=== PATIENT | female | born 1960 | race Caucasian/White ===

== ENCOUNTER → 2017-07-30 | Outpatient (CLI) | payer OTHER ==
--- NOTE | 2017-07-31 08:34 | RAD ---
EXAM: Cervical spine 4 views. HISTORY: Numbness and tingling right upper extremity. COMPARISON: None. FINDINGS: There is slight retrolisthesis from C4 through C6. Degenerative disc disease is moderate at C5-6 and mild at C6-7. No fractures are identified. There is no prevertebral soft tissue swelling. Facet osteoarthritis appears moderate from C4 through C6 on the right greater than left. IMPRESSION: 1. Slight retrolisthesis from C4 through C6 likely from facet osteoarthritis. 2. Degenerative disc disease is moderate at C5-6 and mild at C6-7.
== END | disposition home or self-care (01) ==
LOC: RAD 16:36
PROVIDERS: ATTEND Nurse Practitioner Family
DX: M47.892 Other spondylosis, cervical region (principal); M50.323 Other cervical disc degeneration at C6-C7 level
CPT/HCPCS: 72040

== ENCOUNTER 2017-12-17 15:35 | Emergency (ER) | payer OTHER ==
[~2017-12-17] VITALS: Ht 167.6 cm; Wt 53.9 kg
--- NOTE | 2017-12-17 15:44 | EKG ---
[address] [address] Test Date: 2017-12-17 Test Time: 15:39:47 Pat Name: MATIAS BUSCH Department: Room: Gender: F Bilingual Manager: MIK : 1960 Requested By: REGLA DEL TORO Order Number: [id number] Reading MD: Hernando Riggs MD Measurements Intervals [place] Rate: 76 P: 0 NE: 114 QRS: 27 QRSD: 80 T: 12 QT: 396 QTc: 445 Interpretive Statements SINUS RHYTHM Electronically Signed On 12-19-2017 10:46:57 CDT by Hernando Riggs MD
[2017-12-17 15:59] LABS: BASO # 0.1 x10^3/uL (0.0-0.2); BASO % 1 % (0-3); EOS # 0.2 x10^3/uL (0.0-0.7); EOS % 2 % (0-3); HEMATOCRIT 40.3 % (36.0-47.0); HEMOGLOBIN 13.6 g/dL (12.0-15.5); LYMPH # 2.9 x10^3/uL (1.0-4.8); LYMPH % 34 % (24-48); MEAN CORPUSCULAR HEMOGLOBIN 31 pg (25-35); MEAN CORPUSCULAR HGB CONC 34 g/dL (31-37); MEAN CORPUSCULAR VOLUME 90 fL (79-100); MONO # 0.8 x10^3/uL (0.0-1.1); MONO % 10 % (0-9); NEUT # 4.6 x10^3uL (1.8-7.7); NEUT % 54 % (31-73); PLATELET COUNT 340 x10^3/uL (140-400); RED BLOOD COUNT 4.46 x10^6/uL (3.50-5.40); RED CELL DISTRIBUTION WIDTH 14.1 % (11.5-14.5); WHITE BLOOD COUNT 8.5 x10^3/uL (4.0-11.0)
--- NOTE | 2017-12-17 16:03 | RAD ---
EXAM: Chest, single view. HISTORY: Chest pain. COMPARISON: 05/07/2012. FINDINGS: A frontal view of the chest is obtained. There is no infiltrate, pleural effusion or pneumothorax. The heart is normal in size. There are calcified granulomas. IMPRESSION: No acute pulmonary finding. Electronically signed by: Taylor Saeed MD (12/17/2017 4:00 PM) [facility]
[2017-12-17 16:07] LABS: CALCIUM 9.4 mg/dL (8.5-10.1); CREATININE 0.7 mg/dL (0.6-1.0); GFR 85.9; POTASSIUM 3.7 mmol/L (3.5-5.1)
--- NOTE | 2017-12-17 16:13 | PHYS DOC ---
Past History Past Medical History: Anxiety Past Surgical History: No Surgical History Alcohol Use: None Drug Use: None Adult General Chief Complaint Chief Complaint: CHEST PAIN [facility] HPI 57-year-old female presents with right-sided rib pain. She states that this pain started 3 days ago. It is worse when she is walking around. She denies shortness of breath or diaphoresis. She lies down, the pain goes away. She describes the pain as a sharp, shooting pain just lateral to her breast. She denies any trauma or overuse. She has not had pain like this before. She denies any skin lesions in the area. It is tender to the touch. Review of Systems Review of Systems Constitutional: Denies fever or chills [] Eyes: Denies change in visual acuity, redness, or eye pain [] HENT: Denies nasal congestion or sore throat [] Respiratory: Denies cough or shortness of breath [] Cardiovascular: No additional information not addressed in HPI [] GI: Denies abdominal pain, nausea, vomiting, bloody stools or diarrhea [] : Denies dysuria or hematuria [] Musculoskeletal: Denies back pain or joint pain [] Integument: Denies rash or skin lesions [] Neurologic: Denies headache, focal weakness or sensory changes [] Endocrine: Denies polyuria or polydipsia [] All other systems were reviewed and found to be within normal limits, except as documented in this note. Allergies Allergies Allergies Coded Allergies Type Severity Reaction Last Updated Verified No Known Drug Allergies 07/23/16 No Physical Exam Physical Exam Constitutional: Well developed, well nourished, no acute distress, non-toxic appearance. [] HENT: Normocephalic, atraumatic, bilateral external ears normal, oropharynx moist, no oral exudates, nose normal. [] Eyes: PERRLA, EOMI, conjunctiva normal, no discharge. [] Neck: Normal range of motion, no tenderness, supple, no stridor. [] Cardiovascular:Heart rate regular rhythm, no murmur [] Lungs & Thorax: Bilateral breath sounds clear to auscultation, pain with palpation of right lateral chest [] Abdomen: Bowel sounds normal, soft, no tenderness, no masses, no pulsatile masses. [] Skin: Warm, dry, no erythema, no rash. [] Back: No tenderness, no CVA tenderness. [] Extremities: No tenderness, no cyanosis, no clubbing, ROM intact, no edema. [] Neurologic: Alert and oriented X 3, normal motor function, normal sensory function, no focal deficits noted. [] Psychologic: Affect normal, judgement normal, mood normal. [] Current Patient Data Vital Signs Vital Signs Date Time Temp Pulse Resp B/P (MAP) Pulse Ox O2 Delivery O2 Flow Rate FiO2 12/17/17 15:49 98.1 79 18 99 Room Air Lab Results Laboratory Tests Test 12/17/17 15:45 White Blood Count 8.5 x10^3/uL (4.0-11.0) Red Blood Count 4.46 x10^6/uL (3.50-5.40) Hemoglobin 13.6 g/dL (12.0-15.5) Hematocrit 40.3 % (36.0-47.0) Mean Corpuscular Volume 90 fL (79-100) Mean Corpuscular Hemoglobin 31 pg (25-35) Mean Corpuscular Hemoglobin Concent 34 g/dL (31-37) Red Cell Distribution Width 14.1 % (11.5-14.5) Platelet Count 340 x10^3/uL (140-400) Neutrophils (%) (Auto) 54 % (31-73) Lymphocytes (%) (Auto) 34 % (24-48) Monocytes (%) (Auto) 10 % (0-9) H Eosinophils (%) (Auto) 2 % (0-3) Basophils (%) (Auto) 1 % (0-3) Neutrophils # (Auto) 4.6 x10^3uL (1.8-7.7) Lymphocytes # (Auto) 2.9 x10^3/uL (1.0-4.8) Monocytes # (Auto) 0.8 x10^3/uL (0.0-1.1) Eosinophils # (Auto) 0.2 x10^3/uL (0.0-0.7) Basophils # (Auto) 0.1 x10^3/uL (0.0-0.2) Sodium Level 141 mmol/L (136-145) Potassium Level 3.7 mmol/L (3.5-5.1) Chloride Level 105 mmol/L (98-107) Carbon Dioxide Level 29 mmol/L (21-32) Anion Gap 7 (6-14) Blood Urea Nitrogen 13 mg/dL (7-20) Creatinine 0.7 mg/dL (0.6-1.0) Estimated GFR (Cockcroft-Gault) 85.9 Glucose Level 88 mg/dL (70-99) Calcium Level 9.4 mg/dL (8.5-10.1) EKG EKG Sinus rhythm, rate 76, normal axis, no ST elevations or depressions.[] Radiology/Procedures Radiology/Procedures [] Impressions: EXAM: Chest, single view. HISTORY: Chest pain. COMPARISON: 05/07/2012. FINDINGS: A frontal view of the chest is obtained. There is no infiltrate, pleural effusion or pneumothorax. The heart is normal in size. There are calcified granulomas. IMPRESSION: No acute pulmonary finding. Electronically signed by: Taylor Saeed MD (12/17/2017 4:00 PM) [facility] DICTATED AND SIGNED BY: TAYLOR SAEED MD DATE: 12/17/17 155 Course & Med Decision Making Course & Med Decision Making Pertinent Labs and Imaging studies reviewed. (See chart for details) The patient's EKG is unremarkable. Her chest x-ray is unremarkable outside granulomas, labs are unremarkable. Her troponin is negative. Based on all these results on the exam I believe this is musculoskeletal in nature. I did inform the patient that if her symptoms change or become significantly worse, she should return to the ED. If this persists for more than a few more days she should follow up with her PCP. [] Dragon Disclaimer Dragon Disclaimer This electronic medical record was generated, in whole or in part, using a voice recognition dictation system. Departure Departure: Referrals: JOHN MEDINA (PCP) REGLA DEL TORO DO Dec 17, 2017 16:13
[2017-12-17 17:26] VITALS: BP 107/61
== END 2017-12-17 17:32 | disposition home or self-care (01) ==
LOC: ER 15:35
DX: R07.81 Pleurodynia (principal); F41.9 Anxiety disorder, unspecified
CPT/HCPCS: 36415; 71045; 80048; 84484; 85025; 93005; 99285

== ENCOUNTER → 2018-04-09 | Outpatient (CLI) | payer OTHER ==
--- NOTE | 2018-04-10 08:58 | RAD ---
Right shoulder, 3 views, 04/09/2018: HISTORY: Chronic shoulder pain No fracture or dislocation is identified. No significant arthritic change is seen. There are scattered spurs in the spine IMPRESSION: No significant right shoulder abnormality is detected. Electronically signed by: Alverto Brooks MD (04/10/2018 8:55 AM) [facility]
--- NOTE | 2018-04-10 08:59 | RAD ---
Nasal bones, 04/09/2018: HISTORY: Trouble breathing, nasal deviation No fracture is identified. There is only slight deviation of a portion of the nasal septum to the right of midline. The adjacent paranasal sinuses are clear. IMPRESSION: No significant abnormality is detected. Electronically signed by: Alverto Brooks MD (04/10/2018 8:56 AM) [facility]
== END | disposition home or self-care (01) ==
LOC: RAD 16:50
PROVIDERS: ATTEND Physician Assistant
DX: M25.511 Pain in right shoulder (principal)
CPT/HCPCS: 70150; 73030

== ENCOUNTER → 2018-09-08 | Outpatient (CLI) | payer OTHER ==
--- NOTE | 2018-09-09 08:09 | RAD ---
Chest radiograph 09/08/2018 3:00 PM INDICATION: Cough, chest pain COMPARISON: December 17, 2017 TECHNIQUE: Frontal and lateral views of the chest are provided. FINDINGS: The cardiomediastinal silhouette is within normal limits. There are no pleural effusions. There is no pulmonary vascular congestion. There is no pneumothorax. The lungs are clear. Benign calcified granulomas are present. No significant osseous abnormality is identified. IMPRESSION: No acute cardiopulmonary process. Electronically signed by: Tona Cummins MD (09/09/2018 8:06 AM) [facility]
== END | disposition home or self-care (01) ==
LOC: PMG 14:51
PROVIDERS: ATTEND Registered Nurse
DX: R07.9 Chest pain, unspecified (principal); J84.10 Pulmonary fibrosis, unspecified
CPT/HCPCS: 71046

== ENCOUNTER → 2018-11-25 | Outpatient (CLI) | payer OTHER ==
--- NOTE | 2018-11-25 16:01 | CARD ---
MR#: [id number] Date of Study: 11/25/2018 Ordering Physician: KAYLIN GIRALDO, Referring Physician: KAYLIN GIRALDO Tech: Lanie Linton [facility] APPROVED REPORT EXAM: Two-dimensional and M-mode echocardiogram with Doppler and color Doppler. Other Information Quality : Technically LimitedHR: 90bpm Rhythm : NSR INDICATION Chest Pain 2D DIMENSIONS RVDd2.9 (2.9-3.5cm)Left Atrium(2D)3.0 (1.6-4.0cm) IVSd0.9 (0.7-1.1cm)Aortic Root(2D)2.8 (2.0-3.7cm) LVDd3.7 (3.9-5.9cm)LVOT Diameter1.9 (1.8-2.4cm) PWd0.8 (0.7-1.1cm)LVDs2.4 (2.5-4.0cm) FS (%) 33.9 %SV36.3 ml LVEF(%)63.6 (>50%) M-Mode DIMENSIONS Left Atrium(MM)2.98 (2.5-4.0cm)Aortic Root2.64 (2.2-3.7cm) Aortic Valve AoV Peak Obed.115.3cm/sAoV VTI20.5cm AO Peak GR.5.3mmHgLVOT Peak Obed.77.3cm/s LVOT VTI 14.81cmAO Mean GR.3mmHg RON (VMAX)1.08lc0BGK (VTI)2.06cm2 Mitral Valve MV E Lhcsltcf99.4cm/sMV DECEL VIIY311rg MV A Hgpzuonp74.3cm/sE/A Ratio0.7 Pulmonary Valve PV Peak Jimiklwm99.8cm/sPV Peak Grad.2mmHg LEFT VENTRICLE The left ventricle is normal size. There is normal left ventricular wall thickness. The left ventricu lar systolic function is normal. The Ejection Fraction is 60-65%. There is normal LV segmental wall m otion. Transmitral Doppler flow pattern is Grade I-abnormal relaxation pattern. RIGHT VENTRICLE The right ventricle is normal size. There is normal right ventricular wall thickness. The right ventr icular systolic function is normal. ATRIA The left atrium size is normal. The right atrium size is normal. The interatrial septum is intact wit h no evidence for an atrial septal defect or patent foramen ovale as noted on 2-D or Doppler imaging. AORTIC VALVE The aortic valve is normal in structure and function. The aortic valve is trileaflet. Doppler and Col or Flow revealed no significant aortic regurgitation. There is no significant aortic valvular stenosi s. There is no aortic valvular vegetation. MITRAL VALVE The mitral valve is normal in structure and function. There is no evidence of mitral valve prolapse. There is no mitral valve stenosis. Doppler and Color Flow revealed no mitral valve regurgitation note d. TRICUSPID VALVE The tricuspid valve is normal in structure and function. Doppler and Color Flow revealed no tricuspid valve regurgitation noted. There is no tricuspid valve prolapse or vegetation. There is no tricuspid valve stenosis. PULMONIC VALVE The pulmonic valve is not well visualized. GREAT VESSELS The aortic root is normal in size. The ascending aorta is normal in size. The IVC is normal in size a nd collapses >50% with inspiration. PERICARDIAL EFFUSION There is no evidence of significant pericardial effusion. Critical Notification Critical Value: No <Conclusion> The left ventricular systolic function is normal. The Ejection Fraction is 60-65%. There is normal LV segmental wall motion. Transmitral Doppler flow pattern is Grade I-abnormal relaxation pattern. No significant valvular abnormalities. There is no evidence of significant pericardial effusion. Signed by : Adan Ford, Electronically Approved : 11/25/2018 16:01:16
== END | disposition home or self-care (01) ==
LOC: ECHO 15:03
PROVIDERS: ATTEND Registered Nurse
DX: R07.9 Chest pain, unspecified (principal)
CPT/HCPCS: 93306

== ENCOUNTER 2019-06-09 00:30 | Emergency (ER) | payer OTHER ==
[~2019-06-09] VITALS: Ht 149.9 cm; Wt 65.8 kg
[2019-06-09 00:46] VITALS: BP 144/100
--- NOTE | 2019-06-09 00:48 | PHYS DOC ---
Past History Past Medical History: Anxiety, Other Past Surgical History: No Surgical History Alcohol Use: None Drug Use: None Adult General Chief Complaint Chief Complaint: SKIN RASH/ABSCESS... " I got this rash on my hands.. it may be from new hand soap.. I put some triple antibiotic ointment on them... I worried... I got herpies of the hands.. because they found out that I had herpies about 2 months ago..." HPI HPI Patient is a 59 year old female who presents with above hx and complaints as hand rash after using some new skin cleanser. She concerned it may be herpetic lesions. Patient has some redness on dorsal side of hand which appears to be a contact dermatitis. Patient denies any history immunosuppression no recent travel. No specific ill contact contacts. Does have a history of herpetic lesions on the vaginal area diagnosed 2 months ago. Patient does not wish to have exam in her lower pelvic area states she will follow-up with her [employer]. Review of Systems Review of Systems Constitutional: Denies fever or chills [] Eyes: Denies change in visual acuity, redness, or eye pain [] HENT: Denies nasal congestion or sore throat [] Respiratory: Denies cough or shortness of breath [] Cardiovascular: No additional information not addressed in HPI [] GI: Denies abdominal pain, nausea, vomiting, bloody stools or diarrhea [] : Denies dysuria or hematuria [] Musculoskeletal: Denies back pain or joint pain [] Integument: . The patient]complaints of hand rash Neurologic: Denies headache, focal weakness or sensory changes [] Endocrine: Denies polyuria or polydipsia [] All other systems were reviewed and found to be within normal limits, except as documented in this note. Family History Family History Noncontributory Current Medications Current Medications See nursing for home meds Allergies Allergies Allergies Coded Allergies Type Severity Reaction Last Updated Verified No Known Drug Allergies 07/23/16 No Physical Exam Physical Exam Constitutional: Well developed, well nourished, no acute distress, non-toxic appearance. [] HENT: Normocephalic, atraumatic, bilateral external ears normal, oropharynx moist, no oral exudates, nose normal. []Poor dentition Eyes: PERRLA, EOMI, conjunctiva normal, no discharge. [] Neck: Normal range of motion, no tenderness, supple, no stridor. [] Cardiovascular:Heart rate regular rhythm, no murmur [] Lungs & Thorax: Bilateral breath sounds equal at apex on auscultation [] Abdomen: Bowel sounds normal, soft, no tenderness, no masses, no pulsatile masses. [] Clines pelvic exam Skin: Warm, dry, no erythema, no rash. [] . Except complaints of hand rash Back: No tenderness, no CVA tenderness. [] Extremities: No tenderness, no cyanosis, no clubbing, ROM intact, no edema. [] Neurologic: Alert and oriented X 3, normal motor function, normal sensory function, no focal deficits noted. [] Psychologic: Affect anxious, judgement normal, mood normal. [] EKG EKG [] Radiology/Procedures Radiology/Procedures [] Course & Med Decision Making Course & Med Decision Making Pertinent Labs and Imaging studies reviewed. (See chart for details) Patient to stop the new hand cleanser or soaps. Patient apply A and D ointment small amount 4 times a day to areas of erythema. Patient keep follow-up primary care. Patient return of any concerns. Impression: 1. Contact dermatitis 2. Anxiety disorder [] Dragon Disclaimer Dragon Disclaimer This electronic medical record was generated, in whole or in part, using a voice recognition dictation system. Departure Departure: Disposition: 01 HOME/RESIDENCE PRIOR TO ADM Condition: STABLE Referrals: GIDEON DO (PCP) Dragon Disclaimer This chart was dictated in whole or in part using Voice Recognition software in a busy, high-work load, and often noisy Emergency Department environment. It may contain unintended and wholly unrecognized errors or omissions. Dragon Disclaimer This chart was dictated in whole or in part using Voice Recognition software in a busy, high-work load, and often noisy Emergency Department environment. It may contain unintended and wholly unrecognized errors or omissions. Dragon Disclaimer This chart was dictated in whole or in part using Voice Recognition software in a busy, high-work load, and often noisy Emergency Department environment. It may contain unintended and wholly unrecognized errors or omissions. CLAUDIO MORENO MD Jun 09, 2019 00:48
== END 2019-06-09 01:09 | disposition home or self-care (01) ==
LOC: ER 00:30
DX: L25.3 Unspecified contact dermatitis due to other chemical products (principal); F41.9 Anxiety disorder, unspecified
CPT/HCPCS: 99281

== ENCOUNTER 2019-08-13 13:40 | Emergency (ER) | payer OTHER ==
[~2019-08-13] VITALS: Ht 149.9 cm; Wt 65.4 kg
--- NOTE | 2019-08-13 13:59 | PHYS DOC ---
Past History Past Medical History: Anxiety, Other Past Surgical History: No Surgical History Additional Past Surgical Histo: fatty tumor removal Alcohol Use: None Drug Use: None Adult General Chief Complaint Chief Complaint: URINARY FREQUENCY HPI HPI Patient is a 59-year-old female who presents to the emergency department for evaluation of UTI symptoms. She states that for the past several days, she has had urinary frequency, hesitancy, and some dysuria. She denies any flank or back pain, fevers, chills, nausea, or vomiting. There are no alleviating or exacerba ting factors to her symptoms. She has had similar symptoms with a UTI in the past. Review of Systems Review of Systems Constitutional: Denies fever or chills [] Eyes: Denies change in visual acuity, redness, or eye pain [] HENT: Denies nasal congestion or sore throat [] Respiratory: Denies cough or shortness of breath [] Cardiovascular: The patient denies any shortness of breath, chest pain, palpitations, or orthopnea [] GI: Denies abdominal pain, nausea, vomiting, bloody stools or diarrhea [] : As per history of present illness[] Musculoskeletal: Denies back pain or joint pain [] Integument: Denies rash or skin lesions [] Neurologic: Denies headache, focal weakness or sensory changes [] Allergies Allergies Allergies Coded Allergies Type Severity Reaction Last Updated Verified No Known Drug Allergies 07/23/16 No Physical Exam Physical Exam PHYSICAL EXAM: CONSTITUTIONAL: Well developed, well nourished HEAD: normocephalic, atraumatic EENT: PERRL, EOMI. Conjunctivae normal color, sclerae non-icteric; moist mucous membranes. NECK: Supple, non-tender; no meningismus. LUNGS: Lungs CTA, breathing even and unlabored. Normal air movement. HEART: Regular rate and rhythm, no murmur CHEST: No deformity; non-tender ABDOMEN: The abdomen is soft, and non-tender, no masses or bruits. EXTREM: Normal ROM; no deformity, no calf tenderness. Normal pulses palpable in all extremities. There is no pedal edema. SKIN: No rash; no diaphoresis NEURO: Alert; normal speech and cognition; CN's grossly intact; strength grossly intact without focal deficit. BACK: No CVA TTP. Current Patient Data Lab Results Laboratory Tests Test 2/27/20 13:40 Urine Collection Type Unknown Urine Color Yellow Urine Clarity Hazy Urine pH 5.0 Urine Specific [place] 1.020 Urine Protein Neg Urine Glucose (UA) Neg mg/dL Urine Ketones (Stick) Neg mg/dL Urine Blood Small Urine Nitrite Neg Urine Bilirubin Neg Urine Urobilinogen Dipstick 0.2 mg/dL Urine Leukocyte Esterase Small Urine RBC 6-10 /HPF Urine WBC >40 /HPF Urine Squamous Epithelial Cells Many /LPF Urine Bacteria Many /HPF Urine Mucus Slight /LPF Urine Yeast Present /HPF EKG EKG [] Radiology/Procedures Radiology/Procedures [] Course & Med Decision Making Course & Med Decision Making Pertinent Labs studies reviewed. (See chart for details) [] Dragon Disclaimer Dragon Disclaimer This electronic medical record was generated, in whole or in part, using a voice recognition dictation system. Departure Departure: Impression: Primary Impression: UTI (urinary tract infection) Disposition: HOME, SELF-CARE Condition: STABLE Referrals: GIDEON DO (PCP) Patient Instructions: Urinary Tract Infection Scripts Sulfamethoxazole/Trimethoprim (BACTRIM 400-80 MG TABLET) 1 Each Tablet 1 TAB PO BID for - for 7 Days, #14 TAB 0 Refills Prov: EMILIA ORTIZ MD 08/13/19 EMILIA ORTIZ MD Aug 13, 2019 13:59
[2019-08-13 14:16] LABS: BACTERIA,URINE MANY /HPF (0-FEW); BILIRUBIN,URINE NEG (NEG); CLARITY,URINE HAZY; COLOR,URINE YELLOW; GLUCOSE,URINE NEG (NEG); NITRITE,URINE NEG (NEG); SQUAMOUS EPITHELIAL CELL,UR MANY /LPF; UROBILINOGEN,URINE 0.2 mg/dL (0.2 mg/dL); WBC,URINE >40 /HPF (0-4)
[2019-08-13 14:18] LABS: YEAST,URINE PRESENT /HPF
[2019-08-13] MEDS ORDERED: SULF1TAB23 PO (14:26)
[2019-08-13 14:35] VITALS: BP 116/66
== END 2019-08-13 14:35 | disposition home or self-care (01) ==
LOC: ER 13:46
DX: N39.0 Urinary tract infection, site not specified (principal); F41.9 Anxiety disorder, unspecified; Z87.440 Personal history of urinary (tract) infections
CPT/HCPCS: 81001; 99283

== ENCOUNTER 2020-03-13 08:18 | Emergency (ER) | payer OTHER ==
[~2020-03-13] VITALS: Ht 149.9 cm; Wt 65.4 kg
[~2020-03-13 08:18] MED LIST: SULF1TAB23 PO
--- NOTE | 2020-03-13 08:25 | PHYS DOC ---
Past History Past Medical History: Anxiety, Depression, UTI, Other Additional Past Medical Histor: PTSD Past Surgical History: No Surgical History Additional Past Surgical Histo: fatty tumor removal Alcohol Use: None Drug Use: None General Adult EDM: Chief Complaint: NAUSEA/VOMITING/DIARRHEA HPI: HPI: Patient is a 60-year-old female who arrives via EMS with a chief complaint of nausea and vomiting. The symptoms began 2 hours ago. Patient states she ate 2 bags of [place] sprouts last evening which may have caused it. Patient complains of crampy diffuse moderate abdominal pain that is worse with palpation. Patient also had some loose stools. Symptoms are worse with palpation and by p.o. intake. Pain is nonradiating. Patient also complains of carpal spasms Review of Systems: Review of Systems: Constitutional: Denies fever or chills Eyes: Denies change in visual acuity HENT: Denies nasal congestion or sore throat Respiratory: Has a chronic cough but no shortness of breath Cardiovascular: Denies chest pain or edema GI: Complains of abdominal pain, nausea, vomiting, diarrhea but denies blood in her stool : Denies dysuria Musculoskeletal: Denies back pain or joint pain Integument: Denies rash Neurologic: Denies headache, focal weakness but has tingling in her hands Endocrine: Denies polyuria or polydipsia Lymphatic: Denies swollen glands Psychiatric: Denies depression or anxiety Heart Score: Risk Factors: Risk Factors: DM, Current or recent (<one month) smoker, HTN, HLP, family history of CAD, obesity. Risk Scores: Score 0 - 3: 2.5% MACE over next 6 weeks - Discharge Home Score 4 - 6: 20.3% MACE over next 6 weeks - Admit for Clinical Observation Score 7 - 10: 72.7% MACE over next 6 weeks - Early Invasive Strategies Current Medications: Current Meds: Current Medications Medications (Trade) Dose Ordered Sig/Librado Start Time Stop Time Status Last Admin Dose Admin Ondansetron HCl (Zofran) 4 mg 1X ONCE 03/13/20 08:30 03/13/20 08:31 UNV Sodium Chloride 1,000 ml @ 1,000 mls/hr 1X ONCE 03/13/20 08:30 03/13/20 09:29 UNV Allergies: Allergies: Allergies Coded Allergies Type Severity Reaction Last Updated Verified No Known Drug Allergies 07/23/16 No Physical Exam: PE: Constitutional: Well developed, well nourished, no acute distress, non-toxic appearance. [] HENT: Normocephalic, atraumatic, bilateral external ears normal, no trismus, nose normal. [] Eyes: PERRLA, EOMI, conjunctiva normal, no discharge. [] Neck: Normal range of motion, no tenderness, supple, no stridor. [] Cardiovascular:Heart rate regular rhythm, peripheral pulses are intact Lungs & Thorax: Bilateral breath sounds clear, no respiratory distress Abdomen: Soft with diffuse tenderness without guarding or rebound no masses no pulsatile masses Skin: Warm, dry, no erythema, no rash. [] Back: No tenderness, no CVA tenderness. [] Extremities: No tenderness, no cyanosis, no clubbing, ROM intact, no edema. [] Neurologic: Alert and oriented X 3, normal motor function, normal sensory function, no focal deficits noted. [] Psychologic: Affect normal, judgement normal, mood normal. [] Current Patient Data: Labs: Laboratory Tests Test 03/13/20 08:23 03/13/20 09:34 White Blood Count 18.5 x10^3/uL Red Blood Count 4.99 x10^6/uL Hemoglobin 14.5 g/dL Hematocrit 44.7 % Mean Corpuscular Volume 90 fL Mean Corpuscular Hemoglobin 29 pg Mean Corpuscular Hemoglobin Concent 33 g/dL Red Cell Distribution Width 13.6 % Platelet Count 390 x10^3/uL Neutrophils (%) (Auto) 75 % Lymphocytes (%) (Auto) 17 % Monocytes (%) (Auto) 6 % Eosinophils (%) (Auto) 2 % Basophils (%) (Auto) 1 % Neutrophils # (Auto) 13.8 x10^3uL Lymphocytes # (Auto) 3.1 x10^3/uL Monocytes # (Auto) 1.1 x10^3/uL Eosinophils # (Auto) 0.3 x10^3/uL Basophils # (Auto) 0.1 x10^3/uL Platelet Estimate Pending Sodium Level 139 mmol/L Potassium Level 3.4 mmol/L Chloride Level 99 mmol/L Carbon Dioxide Level 26 mmol/L Anion Gap 14 Blood Urea Nitrogen 15 mg/dL Creatinine 1.1 mg/dL Estimated GFR (Cockcroft-Gault) 50.5 BUN/Creatinine Ratio 14 Glucose Level 170 mg/dL Lactic Acid Level 2.7 mmol/L Calcium Level 10.2 mg/dL Total Bilirubin 0.4 mg/dL Aspartate Amino Transf (AST/SGOT) 13 U/L Alanine Aminotransferase (ALT/SGPT) 21 U/L Alkaline Phosphatase 121 U/L Total Protein 7.9 g/dL Albumin 4.2 g/dL Albumin/Globulin Ratio 1.1 Lipase 208 U/L Urine Collection Type Unknown Urine Color Yellow Urine Clarity Hazy Urine pH 7.0 Urine Specific [place] 1.015 Urine Protein Neg Urine Glucose (UA) Neg mg/dL Urine Ketones (Stick) 80 mg/dL Urine Blood Small Urine Nitrite Neg Urine Bilirubin Neg Urine Urobilinogen Dipstick 0.2 mg/dL Urine Leukocyte Esterase Trace Urine RBC 1-2 /HPF Urine WBC 1-4 /HPF Urine Squamous Epithelial Cells Many /LPF Urine Bacteria 0 /HPF Urine Hyaline Casts Few /HPF Urine Mucus Mod /LPF Current Medications Medications (Trade) Dose Ordered Sig/Librado Route PRN Reason Start Time Stop Time Status Last Admin Dose Admin Sodium Chloride 1,000 ml @ 1,000 mls/hr 1X ONCE IV 03/13/20 08:30 03/13/20 09:29 DC 03/13/20 08:32 Ondansetron HCl (Zofran) 4 mg 1X ONCE IVP 03/13/20 08:30 03/13/20 08:31 DC 03/13/20 08:31 Iohexol (Omnipaque 300 Mg/ml) 75 ml 1X ONCE IV 03/13/20 08:30 03/13/20 08:31 DC Piperacillin Sod/ Tazobactam Sod 3.375 gm/Sodium Chloride 50 ml @ 100 mls/hr 1X ONCE IV 03/13/20 10:00 03/13/20 10:29 DC Vital Signs: Vital Signs Date Time Temp Pulse Resp B/P (MAP) Pulse Ox O2 Delivery O2 Flow Rate FiO2 03/13/20 10:04 98.2 76 18 140/87 (104) 98 EKG: EKG: [] EKG interpreted by me normal sinus rhythm with rate of 76 normal axis normal intervals normal ST segments Radiology/Procedures: Radiology/Procedures: [][address] [address] IMAGING REPORT Signed PATIENT: MATIAS BUSCH ACCOUNT: [id number] : 1960 LOCATION: ER AGE: 60 SEX: F EXAM STATUS: REG ER ORD. PHYSICIAN: JOSE LUIS VELOZ MD REASON: abd pain, n/v PROCEDURE: CT ABD PELV W/ IV CONTRST ONLY Exam: CT abdomen/pelvis with intravenous contrast Indication: Abdominal pain, nausea and vomiting Comparison: None Technique: Helical CT imaging performed of the abdomen and pelvis after the intravenous administration of 75 mL Omnipaque 300 intravenous contrast contrast. Sagittal and coronal reformats were obtained. One or more of the following individualized dose reduction techniques were utilized for this examination: 1. Automated exposure control 2. Adjustment of the mA and/or kV according to patient size 3. Use of iterative reconstruction technique. Findings: Lower chest: There is a calcified granuloma in the right middle lobe. There is an incompletely visualized pulmonary nodule in the lingula measuring at least 6 mm (image 1, series 2). The heart is normal in size. Liver: The liver is normal in size. A well-circumscribed 8 mm hypodensity in the anterior right hepatic lobe is too small characterize but likely simple cyst or hemangioma. Gallbladder/Biliary Tree: There is cholelithiasis with large calculus in the gallbladder fundus. No gallbladder wall thickening. Bile ducts are normal. Pancreas: Normal. Spleen: Normal. Adrenal Glands: Normal. Kidneys/Ureters/Bladder: Kidneys are normal in size and enhance symmetrically. There is a 9 mm simple cyst inferior left renal pole. No hydronephrosis. Ureters and bladder are normal. Reproductive Organs: Uterus and ovaries are unremarkable. Stomach, small bowel, and colon: Stomach is distended. There is dilation of the mid to distal small bowel measuring up to 3 cm in diameter. There is transition to normal caliber or decompressed small bowel distally. No definite transition point identified. There is some fluid in the cecum but the majority of the colon is decompressed. No bowel wall thickening. Vasculature: Abdominal aorta is normal in caliber. Lymph Nodes: No lymphadenopathy. Peritoneum and retroperitoneum: No free fluid or free air. Bones: No acute osseous abnormality. Mild degenerative disc disease at L5-S1. Impression: 1. Mild dilation of mid to distal small bowel without discrete transition point, suspicious for partial small bowel obstruction. 2. Cholelithiasis. 3. Incompletely visualized pulmonary nodule in the lingula measuring at least [address] of the chest to further evaluate. Electronically signed by: Inessa Lemos MD (03/13/2020 10:16 AM) [id number] DICTATED AND SIGNED BY: NIESSA LEMOS MD DATE: 03/13/20 1016 CC: JOSE LUIS VELOZ MD; URIAH CHAUDHRY ~ Course & Med Decision Making: Course & Med Decision Making Pertinent Labs and Imaging studies reviewed. (See chart for details) [] 60-year-old female presents with abdominal pain with nausea and vomiting. Patient has gallstones and a early small bowel obstruction. Patient also has elevated white count and lactate. Patient given IV fluids and antibiotics. We do not have GI or surgical services here and will need to be transferred to [facility]. accept the patient transfer Dragon Disclaimer: Robert Disclaimer: This electronic medical record was generated, in whole or in part, using a voice recognition dictation system. Departure Departure: Impression: Primary Impression: Small bowel obstruction Additional Impressions: Upper abdominal pain Cholelithiasis Disposition: XFER [facility] ([place]) Condition: STABLE Referrals: GIDEON DO (PCP) Justification of Admission: Justification of Admission: Justification of Admission Dx: N/A JOSE LUIS VELOZ MD Mar 13, 2020 08:24
[2020-03-13] MEDS ORDERED: ONDANSETRON PF 4 MG/2 ML VIAL. IVP ONE (08:30)
[2020-03-13] MEDS ORDERED: IOHEXOL 300 MG/ML 75 ML VIAL. IV ONE (08:30)
[2020-03-13] MEDS ORDERED: IV NORMAL SALINE 1,000ML 1,000 ML IV ONE (08:30)
[2020-03-13 08:46] LABS: BASO # 0.1 x10^3/uL (0.0-0.2); BASO % 1 % (0-3); EOS # 0.3 x10^3/uL (0.0-0.7); EOS % 2 % (0-3); HEMATOCRIT 44.7 % (36.0-47.0); HEMOGLOBIN 14.5 g/dL (12.0-15.5); LYMPH # 3.1 x10^3/uL (1.0-4.8); LYMPH % 17 % (24-48); MEAN CORPUSCULAR HEMOGLOBIN 29 pg (25-35); MEAN CORPUSCULAR HGB CONC 33 g/dL (31-37); MEAN CORPUSCULAR VOLUME 90 fL (79-100); MONO # 1.1 x10^3/uL (0.0-1.1); MONO % 6 % (0-9); NEUT # 13.8 x10^3uL (1.8-7.7); NEUT % 75 % (31-73); PLATELET COUNT 390 x10^3/uL (140-400); RED BLOOD COUNT 4.99 x10^6/uL (3.50-5.40); RED CELL DISTRIBUTION WIDTH 13.6 % (11.5-14.5); WHITE BLOOD COUNT 18.5 x10^3/uL (4.0-11.0)
[2020-03-13 08:55] LABS: CALCIUM 10.2 mg/dL (8.5-10.1); CREATININE 1.1 mg/dL (0.6-1.0); GFR 50.5; POTASSIUM 3.4 mmol/L (3.5-5.1)
[2020-03-13 09:00] LABS: ALBUMIN 4.2 g/dL (3.4-5.0); ALBUMIN/GLOBULIN RATIO 1.1 (1.0-1.7); TOTAL BILIRUBIN 0.4 mg/dL (0.2-1.0); TOTAL PROTEIN 7.9 g/dL (6.4-8.2)
[2020-03-13] MEDS ORDERED: PIPERACILLIN/TAZOBACTAM 3.375 GM in IV NORMAL SALINE 50ML 50 ML IV ONE (10:00)
[2020-03-13 10:04] VITALS: BP 140/87
--- NOTE | 2020-03-13 10:07 | EKG ---
[address] [address] Test Date: 2020-03-13 Test Time: 08:26:59 Pat Name: MATIAS BUSCH Department: Room: Gender: F Staffing Rn: SHIVAM : 1960 Requested By: JOSE LUIS VELOZ Order Number: [id number] Reading MD: Hernando Riggs MD Measurements Intervals [place] Rate: 76 P: -25 ME: 116 QRS: 12 QRSD: 76 T: 21 QT: 400 QTc: 455 Interpretive Statements SINUS RHYTHM Electronically Signed On 03-14-2020 12:55:00 CDT by Hernando Riggs MD
[2020-03-13 10:09] LABS: BACTERIA,URINE 0 /HPF (0-FEW); BILIRUBIN,URINE NEG (NEG); CLARITY,URINE HAZY; COLOR,URINE YELLOW; GLUCOSE,URINE NEG (NEG); HYALINE CASTS, URINE FEW /HPF; NITRITE,URINE NEG (NEG); SQUAMOUS EPITHELIAL CELL,UR MANY /LPF; UROBILINOGEN,URINE 0.2 mg/dL (0.2 mg/dL)
--- NOTE | 2020-03-13 10:19 | RAD ---
Exam: CT abdomen/pelvis with intravenous contrast Indication: Abdominal pain, nausea and vomiting Comparison: None Technique: Helical CT imaging performed of the abdomen and pelvis after the intravenous administration of 75 mL Omnipaque 300 intravenous contrast contrast. Sagittal and coronal reformats were obtained. One or more of the following individualized dose reduction techniques were utilized for this examination: 1. Automated exposure control 2. Adjustment of the mA and/or kV according to patient size 3. Use of iterative reconstruction technique. Findings: Lower chest: There is a calcified granuloma in the right middle lobe. There is an incompletely visualized pulmonary nodule in the lingula measuring at least 6 mm (image 1, series 2). The heart is normal in size. Liver: The liver is normal in size. A well-circumscribed 8 mm hypodensity in the anterior right hepatic lobe is too small characterize but likely simple cyst or hemangioma. Gallbladder/Biliary Tree: There is cholelithiasis with large calculus in the gallbladder fundus. No gallbladder wall thickening. Bile ducts are normal. Pancreas: Normal. Spleen: Normal. Adrenal Glands: Normal. Kidneys/Ureters/Bladder: Kidneys are normal in size and enhance symmetrically. There is a 9 mm simple cyst inferior left renal pole. No hydronephrosis. Ureters and bladder are normal. Reproductive Organs: Uterus and ovaries are unremarkable. Stomach, small bowel, and colon: Stomach is distended. There is dilation of the mid to distal small bowel measuring up to 3 cm in diameter. There is transition to normal caliber or decompressed small bowel distally. No definite transition point identified. There is some fluid in the cecum but the majority of the colon is decompressed. No bowel wall thickening. Vasculature: Abdominal aorta is normal in caliber. Lymph Nodes: No lymphadenopathy. Peritoneum and retroperitoneum: No free fluid or free air. Bones: No acute osseous abnormality. Mild degenerative disc disease at L5-S1. Impression: 1. Mild dilation of mid to distal small bowel without discrete transition point, suspicious for partial small bowel obstruction. 2. Cholelithiasis. 3. Incompletely visualized pulmonary nodule in the lingula measuring at least [address] of the chest to further evaluate. Electronically signed by: Inessa Lemos MD (03/13/2020 10:16 AM) [id number]
[2020-03-13] MEDS ORDERED: PIPERACILLIN/TAZOBACTAM 3.375 GM VIAL IV ONE (11:32)
[2020-03-13] MEDS ORDERED: IV NORMAL SALINE 50ML 50 ML ONE (11:32)
[2020-03-13 14:26] LABS: % BANDS 4 % (0-9); % BASOS 1 % (0-3); % EOS 4 % (0-5); % LYMPHS 10 % (24-48); % MONOS 9 % (0-10); % SEGS 72 % (35-66)
[2020-03-13 14:27] LABS: PLT ESTIMATE ADEQUATE (ADEQUATE)
== END 2020-03-13 11:52 | disposition short-term general hospital (02) ==
LOC: ER 08:18
DX: K56.609 Unspecified intestinal obstruction, unspecified as to partial versus complete obstruction (principal); K80.20 Calculus of gallbladder without cholecystitis without obstruction; Z87.440 Personal history of urinary (tract) infections
CPT/HCPCS: 36415; 74177; 80053; 81001; 83605; 83690; 85007; 85025; 87077; 87086; 93005; 96361; 96365; 96375; 99285; J2405; J2543; J7030

== ENCOUNTER 2020-11-19 14:07 | Emergency (ER) | payer OTHER ==
[~2020-11-19] VITALS: Ht 152.4 cm; Wt 52.3 kg
[2020-11-19 14:24] VITALS: BP 114/72
[2020-11-19] MEDS ORDERED: FLUORESCEIN 1MG EYE STRIP. OD ONE (15:00)
[2020-11-19] MEDS ORDERED: FLUORESCEIN 1MG EYE STRIP. ONE (15:00)
[2020-11-19] MEDS ORDERED: ERYT1OIN6 OP (15:10)
--- NOTE | 2020-11-19 15:11 | PHYS DOC ---
Past History Past Medical History: Anxiety, Other Additional Past Medical Histor: chronic pain, Past Surgical History: No Surgical History Alcohol Use: None General Adult EDM: Chief Complaint: EYE PROBLEMS HPI: HPI: 59-year-old female presents with right eye erythema and crusting. Patient noticed that it was getting red yesterday. She admits to itching into the cement yesterday. When she woke up this morning, she had thick crusting on the eye and it was even more erythematous. She decided come in for evaluation. Review of Systems: Review of Systems: Constitutional: Denies fever or chills Eyes: Erythematous right eye HENT: Denies nasal congestion or sore throat Respiratory: Denies cough or shortness of breath Cardiovascular: Denies chest pain or edema GI: Denies abdominal pain, nausea, vomiting, bloody stools or diarrhea : Denies dysuria Musculoskeletal: Denies back pain or joint pain Integument: Denies rash Neurologic: Denies headache, focal weakness or sensory changes Endocrine: Denies polyuria or polydipsia Lymphatic: Denies swollen glands Psychiatric: Denies depression or anxiety Current Medications: Current Meds: Current Medications Medications (Trade) Dose Ordered Sig/Librado Start Time Stop Time Status Last Admin Dose Admin Fluorescein Sodium (Ful-Monique 1mg) 1 strip STK-MED ONCE 11/19/20 15:00 11/19/20 15:00 DC Allergies: Allergies: Allergies Coded Allergies Type Severity Reaction Last Updated Verified No Known Drug Allergies 11/19/20 No Physical Exam: PE: Constitutional: Well developed, well nourished, no acute distress, non-toxic appearance. [] HENT: Normocephalic, atraumatic, bilateral external ears normal, oropharynx moist, no oral exudates, nose normal. [] Eyes: PERRLA, EOMI, conjunctiva erythematous on right. [] Neck: Normal range of motion, no tenderness, supple, no stridor. [] Cardiovascular:Heart rate regular rhythm, no murmur [] Lungs & Thorax: Bilateral breath sounds clear to auscultation [] Abdomen: Bowel sounds normal, soft, no tenderness, no masses, no pulsatile masses. [] Skin: Warm, dry, no erythema, no rash. [] Back: No tenderness, no CVA tenderness. [] Extremities: No tenderness, no cyanosis, no clubbing, ROM intact, no edema. [] Neurologic: Alert and oriented X 3, normal motor function, normal sensory function, no focal deficits noted. [] Psychologic: Affect normal, judgement normal, mood normal. [] Current Patient Data: Vital Signs: Vital Signs Date Time Temp Pulse Resp B/P (MAP) Pulse Ox O2 Delivery O2 Flow Rate FiO2 11/19/20 14:24 97.5 80 16 114/72 (86) 96 Room Air EKG: EKG: [] Radiology/Procedures: Radiology/Procedures: [] Heart Score: C/O Chest Pain: N/A Risk Factors: Risk Factors: DM, Current or recent (<one month) smoker, HTN, HLP, family history of CAD, obesity. Risk Scores: Score 0 - 3: 2.5% MACE over next 6 weeks - Discharge Home Score 4 - 6: 20.3% MACE over next 6 weeks - Admit for Clinical Observation Score 7 - 10: 72.7% MACE over next 6 weeks - Early Invasive Strategies Course & Med Decision Making: Course & Med Decision Making Pertinent Labs and Imaging studies reviewed. (See chart for details) I anesthetized the patient's eye with tetracaine eyedrop and then dilated with fluorescein. I observed under Hackett lamp and did not find any corneal abrasions. Patient does appear to have conjunctivitis. Given the description of thick drainage, I will presume bacterial and treat her with erythromycin ointment. She is stable for discharge at this time. [] Robert Disclaimer: Robert Disclaimer: This electronic medical record was generated, in whole or in part, using a voice recognition dictation system. Departure Departure: Impression: Primary Impression: Bacterial conjunctivitis of right eye Disposition: HOME / SELF CARE / HOMELESS Condition: STABLE Patient Instructions: Bacterial Conjunctivitis, [id number] Scripts Erythromycin Base (Erythromycin) 1 Gm Oint...g. 1 GM OP TID for bacterial conjunctivitis for 7 Days, #1 [facility] [place] Prov: REGLA DEL TORO DO 11/19/20 REGLA DEL TORO DO Nov 19, 2020 15:11
== END 2020-11-19 15:19 | disposition home or self-care (01) ==
LOC: MERGE 14:07 → ER 14:07 → EDBD 14:07 → ER 15:19
DX: H10.31 Unspecified acute conjunctivitis, right eye (principal); F41.9 Anxiety disorder, unspecified
CPT/HCPCS: 99283-25

== ENCOUNTER → 2021-03-10 | Outpatient (CLI) | payer OTHER ==
[~2021-03-10] MED LIST changes: +ERYT1OIN6 OP
--- NOTE | 2021-03-10 17:40 | RAD ---
Bilateral foot x-rays 3 views each HISTORY: Pain. FINDINGS: No fracture. No dislocation. No bone lesion. No arthritic change. The soft tissues are unre markable. There are small bilateral os navicular at the midfoot noted. IMPRESSION: Normal exam. Electronically signed by: Lon Mims MD (03/10/2021 5:38 PM) [id number]
== END ==
LOC: RAD 13:35
PROVIDERS: ATTEND Podiatrist
DX: M79.671 Pain in right foot (principal); M79.672 Pain in left foot
CPT/HCPCS: 73630-50